=== PATIENT | female | born 1965 | race Caucasian/White ===

== ENCOUNTER 2018-06-24 18:15 | Emergency (ER) | payer MEDICAID ==
[~2018-06-24] VITALS: Ht 162.6 cm; Wt 104.3 kg
[~2018-06-24 18:15] MED LIST: ACCUNEB SO1.25 MG/1 INH; ACETAMINOPHEN-1 EAC1 PO; ASMANEX0.135 G1 IH; ASPIR 8181 MG PO; CIPRO500 MG PO; CLEOCIN HCL150 MG PO; GLIPIZIDE 10 MG10 MG PO; IBUPROFEN 800800 M1 PO; LEVOTHYROXIN0.025 MG PO; LIPITOR10 MG PO; LISINOPRIL10 MG PO; LYRICA 50 MG50 MG PO; MEDROLDOSEPACK PO; METFORMIN HCL500 MG PO; NEURONTIN 300300 M1 PO; NORCO 5-325 TA1 EAC1 PO; NORCO 5-325 TA1 EACH PO; OMEPRAZOLE5 GM MC; SEREVENT DISKU50 MCG IH; TRAMADOL 50 MG50 MG PO; ZOFRAN4 MG PO
[2018-06-24] MEDS ORDERED: VICTOZA0.6 MG/0.1 SUBQ (18:25)
[2018-06-24] MEDS ORDERED: TRAMADOL 50 MG50 MG PO (19:06)
[2018-06-24] MEDS ORDERED: NORCO 5-325 TA1 EACH PO (19:40)
[2018-06-24 19:47] VITALS: BP 146/93
== END 2018-06-24 19:47 | disposition home or self-care (01) ==
LOC: M.ERS 18:15
DX: S60.211A Contusion of right wrist, initial encounter (principal); I10 Essential (primary) hypertension; E78.5 Hyperlipidemia, unspecified; E11.40 Type 2 diabetes mellitus with diabetic neuropathy, unspecified; J45.909 Unspecified asthma, uncomplicated; Z88.0 Allergy status to penicillin; Z88.1 Allergy status to other antibiotic agents; Z91.040 Latex allergy status; Z88.8 Allergy status to other drugs, medicaments and biological substances; W54.1XXA Struck by dog, initial encounter; Y93.89 Activity, other specified; Y92.009 Unspecified place in unspecified non-institutional (private) residence as the place of occurrence of the external cause; Y99.8 Other external cause status

== ENCOUNTER 2018-12-12 02:12 | Emergency (ER) | payer MEDICAID ==
[~2018-12-12] VITALS: Ht 162.6 cm; Wt 96.6 kg
[~2018-12-12 02:12] MED LIST changes: +VICTOZA0.6 MG/0.1 SUBQ
[2018-12-12] MEDS ORDERED: LEVEMIR FL100 UNIT/2 (02:27)
[2018-12-12] MEDS ORDERED: CYCLOBENZAPRINE5 MG PO (02:52)
[2018-12-12] MEDS ORDERED: IBUPROFEN 800800 MG PO (02:52)
[2018-12-12 03:09] VITALS: BP 152/79
== END 2018-12-12 03:09 | disposition home or self-care (01) ==
LOC: M.ERS 02:12
DX: S83.8X1A Sprain of other specified parts of right knee, initial encounter (principal); I10 Essential (primary) hypertension; E78.5 Hyperlipidemia, unspecified; E11.40 Type 2 diabetes mellitus with diabetic neuropathy, unspecified; J45.909 Unspecified asthma, uncomplicated; Z79.4 Long term (current) use of insulin; Z98.890 Other specified postprocedural states; Z88.0 Allergy status to penicillin; Z91.040 Latex allergy status; Z88.1 Allergy status to other antibiotic agents; Z88.6 Allergy status to analgesic agent; Z88.8 Allergy status to other drugs, medicaments and biological substances; W18.39XA Other fall on same level, initial encounter; Y93.89 Activity, other specified; Y92.89 Other specified places as the place of occurrence of the external cause; Y99.8 Other external cause status

== ENCOUNTER 2019-03-11 02:07 | Emergency (ER) | payer MEDICAID ==
[~2019-03-11] VITALS: Ht 162.6 cm; Wt 98.9 kg
[~2019-03-11 02:07] MED LIST changes: +CYCLOBENZAPRINE5 MG PO; +IBUPROFEN 800800 MG PO; +LEVEMIR FL100 UNIT/2
[2019-03-11] MEDS ORDERED: NEURONTIN 300300 M1 PO (03:10)
[2019-03-11] MEDS ORDERED: IBUPROFEN 800800 MG PO (03:10)
[2019-03-11 03:53] VITALS: BP 156/90
== END 2019-03-11 03:53 | disposition home or self-care (01) ==
LOC: M.ERS 02:07
DX: S63.592A Other specified sprain of left wrist, initial encounter (principal); I10 Essential (primary) hypertension; E78.5 Hyperlipidemia, unspecified; J45.909 Unspecified asthma, uncomplicated; E11.40 Type 2 diabetes mellitus with diabetic neuropathy, unspecified; Z98.51 Tubal ligation status; Z79.4 Long term (current) use of insulin; Z90.710 Acquired absence of both cervix and uterus; Z91.040 Latex allergy status; Z88.1 Allergy status to other antibiotic agents; Z88.0 Allergy status to penicillin; Z88.6 Allergy status to analgesic agent; W18.39XA Other fall on same level, initial encounter; Y93.89 Activity, other specified; Y92.89 Other specified places as the place of occurrence of the external cause; Y99.8 Other external cause status